=== PATIENT | male | born 1990 | race Caucasian/White ===

== ENCOUNTER 2020-01-09 15:18 | Emergency (ER) | payer SELFPAY, OTHER ==
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
[2020-01-09] MEDS ORDERED: LORazepam 2 MG/ML VIAL ONE (16:15)
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
[2020-01-09] MEDS ORDERED: DERMABOND SKIN ADHESIVE TOP ONE (17:35)
[2020-01-09 21:31] VITALS: TEMP 98.2
[2020-01-09 21:33] VITALS: BP 134/80; O2SAT 100
== END 2020-01-09 17:36 | disposition home or self-care (01) ==
LOC: EDSEX 15:18 → ER 15:18
PROC: 0JQ10ZZ Repair Face Subcutaneous Tissue and Fascia, Open Approach (ICD-10-PCS; principal; 2020-01-09)
DX: S01.111A Laceration without foreign body of right eyelid and periocular area, initial encounter (principal); S80.11XA Contusion of right lower leg, initial encounter; V49.40XA Driver injured in collision with unspecified motor vehicles in traffic accident, initial encounter; F17.210 Nicotine dependence, cigarettes, uncomplicated
CPT/HCPCS: 70450; 71260; 72125; 74177; 96374; 99284; G0390; Q9967